=== PATIENT | male | born 1945 | race Two or more races ===

== ENCOUNTER 2019-09-19 09:22 | Emergency (ER) | payer OTHER ==
[~2019-09-19] VITALS: Ht 170.2 cm; Wt 74.8 kg
[2019-09-19] MEDS ORDERED: SYNTHROID75 MCG PO (09:31)
[2019-09-19] MEDS ORDERED: LOSARTAN-HCTZ1 EAC1 PO (09:31)
[2019-09-19] MEDS ORDERED: AMLODIPINE-OLM1 EAC2 PO (09:31)
[2019-09-19] MEDS ORDERED: ZOCOR20 MG PO (09:32)
== END 2019-09-19 12:28 | disposition home or self-care (01) ==
LOC: ER 09:22
DX: S20.212A Contusion of left front wall of thorax, initial encounter (principal); S70.02XA Contusion of left hip, initial encounter; S80.12XA Contusion of left lower leg, initial encounter; W01.198A Fall on same level from slipping, tripping and stumbling with subsequent striking against other object, initial encounter; Y93.89 Activity, other specified; Y92.018 Other place in single-family (private) house as the place of occurrence of the external cause; Y99.8 Other external cause status

== ENCOUNTER 2021-11-06 11:27 | Outpatient (CLI) | payer OTHER ==
[~2021-11-06 11:27] MED LIST: AMLODIPINE-OLM1 EAC2 PO; LOSARTAN-HCTZ1 EAC1 PO; SYNTHROID75 MCG PO; ZOCOR20 MG PO
== END 2021-11-06 11:35 | disposition home or self-care (01) ==
LOC: TOM 11:27
PROVIDERS: ATTEND Urology
DX: N40.0 Benign prostatic hyperplasia without lower urinary tract symptoms (principal); N20.0 Calculus of kidney

== ENCOUNTER 2024-12-09 19:20 | Emergency (ER) | payer OTHER ==
[~2024-12-09] VITALS: Ht 170.2 cm; Wt 72.1 kg
[2024-12-09 19:41] VITALS: BP 126/67; O2SAT 99
[2024-12-09] MEDS ORDERED: METOPROLOL SUCC25 MG PO (19:41)
[2024-12-09] MEDS ORDERED: FAMOTIDINE/PF 20 MG in 0.9 % SODIUM CHLORIDE 8 ML IV PUSH STA (20:39)
[2024-12-09] MEDS ORDERED: PIPERACILLIN/TAZOBACTAM SODIUM 3.375 GM VIAL IV ONE ×2 (20:45→21:01)
[2024-12-09] MEDS ORDERED: KETOROLAC TROMETHAMINE 30 MG VIAL IV ONE (20:45)
[2024-12-09] MEDS ORDERED: 0.9 % SODIUM CHLORIDE 1,000 ML IV SCH (20:45)
[2024-12-09] MEDS ORDERED: KETOROLAC TROMETHAMINE 30 MG VIAL ONE (21:01)
[2024-12-09] MEDS ORDERED: FAMOTIDINE/PF 20 MG/2 ML VIAL ONE (21:02)
[2024-12-09 21:08] LABS: HEMATOCRIT 37.1 % (39.0-48.0); HEMOGLOBIN 12.4 g/dL (13-16.00); MEAN CELL VOLUME 93.6 fL (80.0-100.00); MEAN CORPUSCULAR HEMOGLOBIN 31.1 pg (27.00-32.0); MEAN CORPUSCULAR HGB CONC 33.3 g/dl (32.0-36.0); PLATELET COUNT 200 K/uL (150-450); RED BLOOD COUNT 3.97 M/uL (4.00-6.00)
[2024-12-09 21:34] LABS: ALBUMIN 3.6 gm/dL (3.4-5.0); BILIRUBIN TOTAL 0.29 mg/dL (0.3-1.2); CALCIUM 9.1 mg/dL (8.5-10.1); CREATININE SERUM 1.44 mg/dL (0.70-1.30); GFR 47.08; GLOBULINA 3.5 G/DL (2.4-3.5); POTASSIUM 3.23 mEq/L (3.5-5.1); TOTAL PROTEIN 7.1 gm/dL (6.4-8.2)
[2024-12-09] MEDS ORDERED: CIPRO500 MG PO (23:20)
[2024-12-09] MEDS ORDERED: PROTONIX40 MG PO (23:20)
[2024-12-09] MEDS ORDERED: LEVSIN/SL0.125 MG SL (23:20)
[2024-12-09] MEDS ORDERED: METRONIDAZOLE500 MG PO (23:20)
== END 2024-12-09 23:24 | disposition home or self-care (01) ==
LOC: ER 19:20
PROVIDERS: General Practice
DX: K57.32 Diverticulitis of large intestine without perforation or abscess without bleeding (principal); N20.0 Calculus of kidney; N40.0 Benign prostatic hyperplasia without lower urinary tract symptoms; I10 Essential (primary) hypertension
CPT/HCPCS: 36415; 74176; 96365; 96366; 99283; J1885; J2543; J3490